=== PATIENT | female | born 2000 | race Caucasian/White ===

== ENCOUNTER 2021-12-20 12:09 | Emergency (ER) | payer MEDICAID ==
[~2021-12-20] VITALS: Ht 160 cm; Wt 72.6 kg
[2021-12-20 12:30] VITALS: BP_SYST 129
--- NOTE | 2021-12-20 12:30 | NUR ---
Patient triaged and placed in waiting room. VSS and patient appears in no acute distress at this time. Accompanied by SELF, awaiting available bed, and MD notified of need for MSE.
--- NOTE | 2021-12-20 13:30 | NUR ---
ER DR. VARNER EXAMINING PT IN TRIAGE
[2021-12-20 14:04] LABS: BASOPHILS # (AUTO) 0.1 K/uL (0.0-0.2); BASOPHILS % (AUTO) 1.1 % (0.0-2.0); EOSINOPHILS # (AUTO) 0.3 K/uL (0.0-0.4); EOSINOPHILS % (AUTO) 3.9 % (0.0-4.0); HEMATOCRIT 43.1 % (36-48); HEMOGLOBIN 15.3 g/dL (12.0-16.0); LYMPHOCYTES # (AUTO) 1.8 K/uL (1.0-5.5); LYMPHOCYTES % (AUTO) 24.5 % (20.5-51.5); MEAN CORPUSCULAR HEMOGLOBIN 33 pg (27-31); MEAN CORPUSCULAR HGB CONC 36 % (32-36); MEAN CORPUSCULAR VOLUME 92 fL (79.0-98.0); MONOCYTES # (AUTO) 0.7 K/uL (0.0-1.0); MONOCYTES % (AUTO) 9.2 % (1.7-9.3); NEUTROPHILS # (AUTO) 4.5 K/uL (1.8-7.7); NEUTROPHILS % (AUTO) 61.3 % (40.0-70.0); PLATELET COUNT (AUTO) 245 K/uL (130-430); WHITE BLOOD COUNT (AUTO) 7.3 K/uL (4.5-11.0)
[2021-12-20 14:18] LABS: ANION GAP 4 (5-15); CALCIUM 8.9 mg/dL (8.4-11.0); CHLORIDE 104 mmol/L (98-107); CREATININE 0.81 mg/dL (0.55-1.30); GLUCOSE 76 mg/dL (70-99); UREA NITROGEN, BLOOD 11 mg/dL (8-21)
[2021-12-20 14:23] LABS: ALANINE AMINOTRANSFERASE 20 U/L (12-78); ALBUMIN 4.3 g/dL (3.4-4.8); ASPARTATE AMINOTRANSFERASE 13 U/L (10-37); GFR AFRICAN AMERICAN 116 mL/min (>90); TOTAL BILIRUBIN 0.7 mg/dL (0.0-1.0)
[2021-12-20 14:24] LABS: C-REACTIVE PROTEIN QUANT < 0.2 mg/dL (0-0.5)
[2021-12-20] MEDS ORDERED: IBUP-1969 PO (14:54)
[2021-12-20] MEDS ORDERED: HYDR-3917 PO (14:54)
[2021-12-20 14:57] LABS: ERYTHROCYTE SEDIMENTATION RATE 5 MM/HR (0-20)
[2021-12-20 15:26] VITALS: BP_SYST 129
--- NOTE | 2021-12-20 15:28 | NUR ---
Patient given written and verbal discharge instructions and verbalizes understanding. ER MD discussed with patient the results and treatment provided. Patient in stable condition. ID arm band removed. Rx of NORCO AND IBURPOFEN given. Patient educated on pain management and to follow up with PMD. Pain Scale 0/10. Opportunity for questions provided and answered. Medication side effect fact sheet provided.
== END 2021-12-20 15:26 | disposition home or self-care (01) ==
LOC: SED 12:09
DX: M67.833 Other specified disorders of tendon, right wrist (principal); M25.531 Pain in right wrist; Z88.0 Allergy status to penicillin; Z79.899 Other long term (current) drug therapy
CPT/HCPCS: 36415; 80053; 81025; 84550; 84703; 85025; 85651-TC; 86140; 99284